=== PATIENT | female | born 1980 | race American Indian/Alaskan Native ===

== ENCOUNTER 2016-11-08 07:32 | Emergency (ER) | payer MEDICAID, SELFPAY ==
--- NOTE | 2016-11-08 08:09 | EDM.PDOC ---
ED HPI GI/ABDOMINAL - General Chief Complaint: Gastrointestinal Problem Stated Complaint: THROWING UP NONE STOP Time Seen by Provider: 11/08/16 08:08 Source: Reports: Patient History Limitations: Reports: No limitations - History of Present Illness INITIAL COMMENTS - FREE TEXT/NARRATIVE: pt arrived hyperventilating and not giving much for history. She talks about alot of breast tenderness. She has been vomiting. She had diarrhea yesterday. 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: - Past Surgical History Female Surgical History: Reports: section, Tubal ligation Social & Family History - Tobacco Use Smoking Status *Q: Current Every Day Smoker Years of Tobacco use: 8 Packs/Tins Daily: 0.1 - Caffeine Use Caffeine Use: Reports: Tea - Alcohol Use Days Per Week of Alcohol Use: 0 - Recreational Drug Use Recreational Drug Use: Yes Recreational Drug Type: Reports: Marijuana/Hashish ED ROS GENERAL - Review of Systems Review Of Systems: See Below Constitutional: Reports: fever, chills, malaise HEENT: Reports: No symptoms Respiratory: Reports: no symptoms, other (pt is breathing rapidly) Cardiovascular: Reports: Lightheadedness Endocrine: Reports: no symptoms GI/Abdominal: Reports: Abdominal pain, Nausea, Vomiting, Other (pt has vomited all nite and she now has discomfort in the upper abdoman. ) : Reports: no symptoms Musculoskeletal: Reports: no symptoms Skin: Reports: no symptoms Neurological: Reports: dizziness, headache Psychiatric: Reports: Anxiety, Other (pt is crying and upset. ) ED EXAM, GI/ABD - Physical Exam Exam: See Below Text/Narrative:: Pt has been vomiting all nite. She has also had loose stools and chilling. Exam Limited By: No limitations General Appearance: alert, mild distress Ears: normal TMs Nose: normal inspection Throat/Mouth: Normal inspection Head: atraumatic Neck: normal inspection Respiratory/Chest: no respiratory distress Cardiovascular: regular rate, rhythm, tachycardia GI/Abdominal: soft, other (mild epigastric tenderness) Rectal (Female) Exam: Deferred Back Exam: normal inspection Extremities: normal inspection Neurological: alert, oriented Psychiatric: anxious Course - Vital Signs Last Recorded V/S: Last Vital Signs Temp 37.2 C 11/08/16 07:42 Pulse 85 11/08/16 10:36 Resp 16 11/08/16 10:36 BP 156/84 H 11/08/16 10:36 Pulse Ox 99 11/08/16 10:36 - Orders/Labs/Meds Orders: Active Orders 24 hr Category Date Time Status CULTURE URINE [RM] Stat Lab 11/08/16 08:00 Received Sodium Chloride 0.9% [Normal Saline] 1,000 ml Med 11/08/16 08:15 Active IV ASDIRECTED Sodium Chloride 0.9% [Normal Saline] 1,000 ml Med 11/08/16 08:45 Active IV ASDIRECTED Medication Orders Sodium Chloride (Normal Saline) 1,000 mls @ 999 mls/hr IV ASDIRECTED PHONG Last Admin: 11/08/16 08:27 Dose: 999 mls/hr Sodium Chloride (Normal Saline) 1,000 mls @ 999 mls/hr IV ASDIRECTED PHONG Last Admin: 11/08/16 09:30 Dose: 999 mls/hr Labs: Laboratory Tests 11/08/16 11/08/16 11/08/16 Range/Units 07:55 07:55 07:55 WBC 12.9 H (4.5-11.0) K/uL RBC 5.31 (3.30-5.50) M/uL Hgb 13.9 (12.0-15.0) g/dL Hct 43.3 (36.0-48.0) % MCV 82 (80-98) fL MCH 26 L (27-31) pg MCHC 32 (32-36) % Plt Count 347 (150-400) K/uL Neut % (Auto) 81 H (36-66) % Lymph % (Auto) 14 L (24-44) % [place] % (Auto) 4 (2-6) % Eos % (Auto) 0 L (2-4) % Baso % (Auto) 1 (0-1) % Sodium 139 L (140-148) mmol/L Potassium 3.6 (3.6-5.2) mmol/L Chloride 100 (100-108) mmol/L Carbon Dioxide 24 (21-32) mmol/L Anion Gap 18.6 H (5.0-14.0) mmol/L BUN 10 (7-18) mg/dL Creatinine 0.9 (0.6-1.0) mg/dL Est Cr Clr Drug Dosing 79.25 mL/min Estimated GFR (MDRD) > 60 (>60) Glucose 109 H (74-106) mg/dL Calcium 9.1 (8.5-10.1) mg/dL Total Bilirubin 0.3 D (0.2-1.0) mg/dL AST 18 (15-37) U/L ALT 41 (12-78) U/L Alkaline Phosphatase 86 (46-116) U/L Total Protein 9.4 H (6.4-8.2) g/dL Albumin 4.9 (3.4-5.0) g/dL Globulin 4.5 H (2.3-3.5) g/dL Albumin/Globulin Ratio 1.1 L (1.2-2.2) Lipase 114 (73-393) U/L Urine Color Urine Appearance Urine pH (4.5-8.0) Ur Specific [place] (1.008-1.030) Urine Protein (NEGATIVE) mg/dL Urine Glucose (UA) (NEGATIVE) mg/dL Urine Ketones (NEGATIVE) mg/dL Urine Occult Blood (NEGATIVE) Urine Nitrite (NEGATIVE) Urine Bilirubin (NEGATIVE) Urine Urobilinogen (NORMAL) mg/dL Ur Leukocyte Esterase (NEGATIVE) Urine RBC (0-5) Urine WBC (0-5) Ur Epithelial Cells Amorphous Sediment Urine Bacteria Urine Mucus 11/08/16 Range/Units 07:57 WBC (4.5-11.0) K/uL RBC (3.30-5.50) M/uL Hgb (12.0-15.0) g/dL Hct (36.0-48.0) % MCV (80-98) fL MCH (27-31) pg MCHC (32-36) % Plt Count (150-400) K/uL Neut % (Auto) (36-66) % Lymph % (Auto) (24-44) % [place] % (Auto) (2-6) % Eos % (Auto) (2-4) % Baso % (Auto) (0-1) % Sodium (140-148) mmol/L Potassium (3.6-5.2) mmol/L Chloride (100-108) mmol/L Carbon Dioxide (21-32) mmol/L Anion Gap (5.0-14.0) mmol/L BUN (7-18) mg/dL Creatinine (0.6-1.0) mg/dL Est Cr Clr Drug Dosing mL/min Estimated GFR (MDRD) (>60) Glucose (74-106) mg/dL Calcium (8.5-10.1) mg/dL Total Bilirubin (0.2-1.0) mg/dL AST (15-37) U/L ALT (12-78) U/L Alkaline Phosphatase (46-116) U/L Total Protein (6.4-8.2) g/dL Albumin (3.4-5.0) g/dL Globulin (2.3-3.5) g/dL Albumin/Globulin Ratio (1.2-2.2) Lipase (73-393) U/L Urine Color Yellow Urine Appearance Cloudy Urine pH 5.0 (4.5-8.0) Ur Specific [place] 1.025 (1.008-1.030) Urine Protein 30 H (NEGATIVE) mg/dL Urine Glucose (UA) Normal (NEGATIVE) mg/dL Urine Ketones 15 H (NEGATIVE) mg/dL Urine Occult Blood Negative (NEGATIVE) Urine Nitrite Negative (NEGATIVE) Urine Bilirubin Negative (NEGATIVE) Urine Urobilinogen Normal (NORMAL) mg/dL Ur Leukocyte Esterase Moderate (NEGATIVE) Urine RBC 0-5 (0-5) Urine WBC 20-30 H (0-5) Ur Epithelial Cells Few Amorphous Sediment Not seen Urine Bacteria Few Urine Mucus Not seen Meds: Medications Generic Name Dose Route Start Last Admin Trade Name Freq PRN Reason Stop Dose Admin Sodium Chloride 1,000 mls @ 999 mls/hr 11/08/16 08:15 11/08/16 08:27 Normal Saline IV 999 mls/hr ASDIRECTED PHONG Administration Sodium Chloride 1,000 mls @ 999 mls/hr 11/08/16 08:45 11/08/16 09:30 Normal Saline IV 999 mls/hr ASDIRECTED PHONG Administration Discontinued Medications Generic Name Dose Route Start Last Admin Trade Name Freq PRN Reason Stop Dose Admin Loperamide HCl 2 mg 11/08/16 10:43 Imodium PO 11/08/16 10:44 ONETIME ONE Lorazepam 0.5 mg 11/08/16 08:14 11/08/16 08:28 Ativan IVPUSH 11/08/16 08:15 0.5 mg ONETIME ONE Administration Ondansetron HCl 4 mg 11/08/16 08:14 11/08/16 08:32 Zofran IVPUSH 11/08/16 08:15 4 mg ONETIME ONE Administration - Re-Assessments/Exams Free Text/Narrative Re-Assessment/Exam: 11/08/16 09:02 Pt arrived with vmiting and diarrhea. Her electrolytes show she is dry. Flids were started and she was given zoforan and ativan. 11/08/16 11:11 orthostatic pressures were ok. 11/08/16 11:29 pt arrived dehydrated and has been hydrated with 2 liters of fluid She is feeling much better. Departure - Departure Time of Disposition: 11:13 Disposition: Home, Self-Care 01 Condition: fair Clinical Impression: Dehydration, Flu syndrome Referrals: PCP,None [Primary Care Provider] - Forms: ED Department Discharge Care Plan Goals: clear liquids today advance as tolerated. , zoforan 4 mg q6h prn for nausea, if pt has further diarrhea use imodium 1-2 tabs after each loose stool. - My Orders Last 24 Hours: My Active Orders 11/08/16 08:00 CULTURE URINE [RM] Stat 11/08/16 08:15 Sodium Chloride 0.9% [Normal Saline] 1,000 ml IV ASDIRECTED 11/08/16 08:45 Sodium Chloride 0.9% [Normal Saline] 1,000 ml IV ASDIRECTED - Assessment/Plan Last 24 Hours: My Active Orders 11/08/16 08:00 CULTURE URINE [RM] Stat 11/08/16 08:15 Sodium Chloride 0.9% [Normal Saline] 1,000 ml IV ASDIRECTED 11/08/16 08:45 Sodium Chloride 0.9% [Normal Saline] 1,000 ml IV ASDIRECTED
[2016-11-08] MEDS ORDERED: LORazepam 2 MG/ML MDV IVPUSH ONE (08:14)
[2016-11-08] MEDS ORDERED: Ondansetron 4 MG/2 ML SDV IVPUSH ONE (08:14)
[2016-11-08] MEDS ORDERED: Sodium Chloride 0.9% 1,000 ML IV SCH ×2 (08:15→08:45)
[2016-11-08] MEDS ORDERED: Loperamide 2 MG Cap PO ONE (10:43)
[2016-11-08 12:00] VITALS: BP 146/83
== END 2016-11-08 11:50 | disposition home or self-care (01) ==
LOC: JP.ED 07:32
DX: E86.0 Dehydration (principal); J11.1 Influenza due to unidentified influenza virus with other respiratory manifestations; F17.210 Nicotine dependence, cigarettes, uncomplicated
CPT/HCPCS: 36415; 80053; 81001; 83690; 85025; 87086; 96361; 96374; 96375; 99284; J2060; J2405; J7040

== ENCOUNTER 2017-09-02 18:26 | Emergency (ER) | payer MEDICAID, SELFPAY ==
[2017-09-02 18:48] VITALS: BP 166/104
[2017-09-02] MEDS ORDERED: Ketorolac 60 MG/2 ML SDV IM ONE (19:50)
[2017-09-02] MEDS ORDERED: Codeine/guaiFENesin 100mg-10 MG/5 ML Syrup 10 ML Cup PO ONE (19:50)
--- NOTE | 2017-09-02 19:52 | EDM.PDOC ---
ED HPI GENERAL MEDICAL PROBLEM - General Chief Complaint: Respiratory Problem Stated Complaint: FEVER,RESPIRATORY Time Seen by Provider: 09/02/17 19:01 Source of Information: Reports: Patient, Family, RN Notes Reviewed History Limitations: Reports: No Limitations - History of Present Illness INITIAL COMMENTS - FREE TEXT/NARRATIVE: 37-year-old female presents emergency department day complaint of fever and cough she is been ill for about 24 hours she does have posttussive emesis and body aches did not receive a flu shot this year Generalized Pain Score (Numeric/FACES): 10 - Related Data Allergies Allergy/AdvReac Type Severity Reaction Status Date / Time No Known Allergies Allergy Verified 11/08/16 07:49 Home Meds: Home Meds Acetaminophen [Tylenol] 2 tab PO Q4HR PRN 09/02/17 [History] 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: - Past Surgical History Female Surgical History: Reports: Section, Tubal Ligation Social & Family History - Tobacco Use Smoking Status *Q: Current Every Day Smoker Years of Tobacco use: 8 Packs/Tins Daily: 0.5 Second Hand Smoke Exposure: Yes - Caffeine Use Caffeine Use: Reports: Soda - Alcohol Use Days Per Week of Alcohol Use: 0 - Recreational Drug Use Recreational Drug Use: No Recreational Drug Type: Reports: Marijuana/Hashish ED ROS GENERAL - Review of Systems Review Of Systems: See Below Constitutional: Reports: Fever, Chills HEENT: Reports: No Symptoms Respiratory: Reports: Shortness of Breath, Cough, Sputum Cardiovascular: Reports: No Symptoms GI/Abdominal: Reports: Vomiting : Reports: No Symptoms Musculoskeletal: Reports: No Symptoms Skin: Reports: No Symptoms Neurological: Reports: No Symptoms ED EXAM, GENERAL - Physical Exam Exam: See Below Exam Limited By: No Limitations General Appearance: Alert, WD/WN, No Apparent Distress Eye Exam: Bilateral Eye: Normal Inspection Ears: Normal External Exam, Normal Canal, Hearing Grossly Normal, Normal TMs Nose: Normal Inspection, Normal Mucosa, No Blood Throat/Mouth: Normal Inspection, Normal Lips, Normal Teeth, Normal Gums, Normal Oropharynx, Normal Voice, No Airway Compromise Head: Atraumatic, Normocephalic Neck: Normal Inspection, Supple, Non-Tender, Full Range of Motion Respiratory/Chest: No Respiratory Distress, Lungs Clear, Normal Breath Sounds, No Accessory Muscle Use Cardiovascular: Regular Rate, Rhythm, No Murmur GI/Abdominal: Soft, Non-Tender Course - Vital Signs Last Recorded V/S: Last Vital Signs Temp 99 F 09/02/17 18:54 Pulse 88 09/02/17 18:54 Resp 16 09/02/17 18:54 BP 166/104 H 09/02/17 18:54 Pulse Ox 98 09/02/17 18:54 - Orders/Labs/Meds Orders: Active Orders 24 hr Category Date Time Status Chest 2V [CR] Urgent Exams 09/02/17 19:49 Taken Labs: Laboratory Tests 09/02/17 09/02/17 Range/Units 19:59 19:59 WBC 7.8 (4.5-11.0) K/uL RBC 5.01 (3.30-5.50) M/uL Hgb 13.4 (12.0-15.0) g/dL Hct 42.0 (36.0-48.0) % MCV 84 (80-98) fL MCH 27 (27-31) pg MCHC 32 (32-36) % Plt Count 272 (150-400) K/uL Neut % (Auto) 80 H (36-66) % Lymph % (Auto) 10 L (24-44) % [place] % (Auto) 9 H (2-6) % Eos % (Auto) 0 L (2-4) % Baso % (Auto) 0 (0-1) % Sodium 138 L (140-148) mmol/L Potassium 3.3 L (3.6-5.2) mmol/L Chloride 101 (100-108) mmol/L Carbon Dioxide 27 (21-32) mmol/L Anion Gap 13.3 (5.0-14.0) mmol/L BUN 5 L (7-18) mg/dL Creatinine 0.7 (0.6-1.0) mg/dL Est Cr Clr Drug Dosing 105.01 mL/min Estimated GFR (MDRD) > 60 (>60) Glucose 90 (74-106) mg/dL Calcium 9.0 (8.5-10.1) mg/dL Meds: Medications Discontinued Medications Generic Name Dose Route Start Last Admin Trade Name Freq PRN Reason Stop Dose Admin Guaifenesin/Codeine Phosphate 10 ml 09/02/17 19:50 09/02/17 19:55 Robitussin Ac PO 09/02/17 19:51 10 ml ONETIME ONE Administration Ketorolac Tromethamine 60 mg 09/02/17 19:50 09/02/17 19:55 Toradol IM 09/02/17 19:51 60 mg ONETIME ONE Administration Departure - Departure Time of Disposition: 20:30 Disposition: Home, Self-Care 01 Condition: Good Clinical Impression: Viral syndrome - Discharge Information Referrals: PCP,None [Primary Care Provider] - Forms: ED Department Discharge - My Orders Last 24 Hours: My Active Orders 09/02/17 19:49 Chest 2V [CR] Urgent - Assessment/Plan Last 24 Hours: My Active Orders 09/02/17 19:49 Chest 2V [CR] Urgent Plan: Assessment Acuity = acute Site and laterality = cough Etiology = probable viral syndrome suspicious for influenza Manifestations = cough, posttussive emesis, fever Location of injury = Home Lab values = CBC, BMP unremarkable, influenza swab was negative, chest x-ray I did review films myself I cannot appreciate any acute process, the official read from radiology is pending Plan I did review lab work chest x-ray results with her because I'm suspicious for the flu him to treat her with Tamiflu 5 day course prescription written for Robitussin-AC 10 mL by mouth 3 times a day when necessary for the cough ibuprofen 600 mg by mouth 4 times a day when necessary for body aches follow-up with primary care in 3-5 days if no improvement This note was dictated using [employer] voice recognition software please call with any questions on syntax or jackelin.
[2017-09-02] MEDS ORDERED: Oseltamivir 75 MG Cap PO ONE (20:32)
--- NOTE | 2017-09-05 09:29 | CR ---
Chest 2V INDICATION: cough COMPARISON: None FINDINGS: Two views. Heart size normal. Lungs are clear. No infiltrate or pleural effusion. No sig ns of pulmonary edema. IMPRESSION: Negative chest.
== END 2017-09-02 20:44 | disposition home or self-care (01) ==
LOC: JP.ED 18:26
DX: B34.9 Viral infection, unspecified (principal); F17.210 Nicotine dependence, cigarettes, uncomplicated
CPT/HCPCS: 36415; 71020; 80048; 85025; 87804; 96372; 99284; A9270; J1885; 99283

== ENCOUNTER 2018-03-15 15:32 | Emergency (ER) | payer SELFPAY ==
[2018-03-15 16:18] VITALS: BP 157/113
[2018-03-15] MEDS ORDERED: Ondansetron 4 MG/2 ML SDV IVPUSH ONE (16:34)
[2018-03-15] MEDS ORDERED: LORazepam 2 MG/ML SDV IVPUSH ONE (16:34)
[2018-03-15] MEDS: Sodium Chloride 0.9% 1,000 ML IV SCH ×2 (17:03→17:58)
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
[2018-03-15] MEDS ORDERED: Sodium Chloride 0.9% 1,000 ML IV SCH (17:30)
[2018-03-15] MEDS ORDERED: Magnesium Citrate Solution 296 ML Bottle PO ONE (17:38)
--- NOTE | 2018-03-16 08:35 | CR ---
Abdomen Series w Chest 1V CLINICAL HISTORY: Abdominal pain FINDINGS: Lung caballero are clear. No free air is identified. Small intestinal pattern is nonacute. The re is moderate retained stool in the right colon. No urinary stones are identified IMPRESSION: Nonacute intestinal gas pattern Mild fecal retention
== END 2018-03-15 18:19 | disposition home or self-care (01) ==
LOC: JP.ED 15:32
DX: F10.239 Alcohol dependence with withdrawal, unspecified (principal); Y90.0 Blood alcohol level of less than 20 mg/100 ml; E86.0 Dehydration; Z79.899 Other long term (current) drug therapy
CPT/HCPCS: 36415; 74022; 80053; 80305; 81001; 85025; 96361; 96374; 96375; 99284; A9270; G0480; J2060; J2405; J7030